=== PATIENT | female | born 1975 | race Caucasian/White ===

== ENCOUNTER 2023-05-11 21:39 | Emergency (ER) | payer MEDICAID, SELFPAY ==
[2023-05-11 21:44] VITALS: BP 127/93; PULSE 82; RESP 16; TEMP 37.2; O2SAT 99; BMI 22.9
--- NOTE | 2023-05-11 22:01 | ED.EYEPROB1 ---
HPI - Eye Problem General Chief complaint: Eye Problems Stated complaint: LT EYE SWELLING Time Seen by Provider: 05/11/23 21:56 Source: patient Mode of arrival: walk-in Limitations: no limitations History of Present Illness HPI Narrative: patient rubbed her eye because it felt uncomfortable. She does wear contacts. States it feels itchy. No headache.Denies injury chief complaint: Reports eye redness Related Data Allergies Allergy/AdvReac Type Severity Reaction Status Date / Time No Known Drug Allergies Allergy Verified 05/11/23 21:47 Review of Systems ROS Status of ROS 10 or more systems reviewed and unremarkable except as noted in history and below PFS PFS Social History Smoking status: Current every day smoker Exam Constitutional Vital Signs, click to edit/add: Last Vital Signs Temp 98.9 F 05/11/23 21:44 Pulse 82 05/11/23 21:44 Resp 05/11/23 21:44 BP 127/93 H 05/11/23 21:44 Pulse Ox 99 05/11/23 21:44 O2 Del Method Room Air 05/11/23 21:44 Common normals: no apparent distress, average body habitus, oriented x3 and healthy appearing Eye Common normals: PERRL, EOMs intact bilaterally and no scleral icterus Other: sl chemosis left eye. eye with mild injection. No palpebral swelling or erythema Respiratory Common normals: normal respiratory effort, no retractions and no use of accessory muscles Cardio Common normals: regular rate, regular rhythm, S1 normal heart sound and S2 normal heart sound Extremity Common normals: normal to inspection and full ROM Neuro Common normals: oriented x3, CN's II-XII intact bilaterally, moves all extremities and no focal motor deficits Psych Appearance: grossly normal Course Vital Signs Vital signs: Vital Signs Temperature 98.9 F 05/11/23 21:44 Pulse Rate 82 05/11/23 21:44 Respiratory Rate 16 05/11/23 21:44 Blood Pressure 127/93 H 05/11/23 21:44 Pulse Oximetry 99 05/11/23 21:44 Oxygen Delivery Method Room Air 05/11/23 21:44 Temperature 98.9 F 05/11/23 21:44 Pulse Rate 82 05/11/23 21:44 Respiratory Rate 16 05/11/23 21:44 Blood Pressure 127/93 H 05/11/23 21:44 Pulse Oximetry 99 05/11/23 21:44 Oxygen Delivery Method Room Air 05/11/23 21:44 MDM - Eye Problem MDM Narrative Medical decision making narrative: patient presents with what appears to be an allergic conjunctivitis. mild injection, itch and chemosis of the right eye. No clear correlation as to the cause. Treated with prednisone and tobradex in the department and the swelling and irritation improved. Discharged home and advised to have her eye rechecked in one day Discharge Plan Discharge Chief Complaint: Eye Problems Clinical Impression: Conjunctivitis Patient Disposition: Home, Self-Care Instructions: Conjunctivitis (ED) Additional Instructions: have eye rechecked within 24 hours. use drops as prescribed Stand Alone Forms: Portal Instructions Referrals: MARBELLA RODNEY [Primary Care Provider] - 1 week
[2023-05-11] MEDS: TOBRAMYCIN/DEXAMETHASONE 0.3%/0.1% OP SUSP 50 DROP/2.5 ML BOTTLE 2 ML OP (22:34)
[2023-05-11] MEDS: PREDNISONE 20 MG TABLET 40 MG PO (22:34)
== END 2023-05-11 23:03 | disposition home or self-care (01) ==
PROVIDERS: Emergency Provider Internal Medicine; PCP Student in an Organized Health Care Education/Training Program
DX: H10.9 Unspecified conjunctivitis (principal); F17.210 Nicotine dependence, cigarettes, uncomplicated
CPT/HCPCS: 99283

== ENCOUNTER 2024-10-03 18:22 | Emergency (ER) | payer SELFPAY ==
[2024-10-03 18:27] VITALS: BP 128/77; PULSE 94; TEMP 36.7; O2SAT 98; BMI 19.2
--- NOTE | 2024-10-03 18:40 | ECG_ITS ---
[facility] Test Date: 2024-10-03 Pat Name: TRISH CARLISLE Department: Room: - Gender: Female Director Of Education And Training: : 1975 Requested By: [id number] Order Number: [id number] Reading MD: MELVINA LE Measurements Intervals [place] Rate: 80 P: 44 OK: 116 QRS: 58 QRSD: 86 T: 25 QT: 408 QTc: 444 Interpretive Statements 1100 Sinus rhythm 2210 Short OK interval 8102 Low QRS voltage in chest leads 9150 abnormal ECG No previous ECG available for comparison Electronically Signed On 10-04-2024 14:57:49 EST by MELVINA LE
--- NOTE | 2024-10-03 18:41 | ED_ITS ---
Documented by User: BRIANNE Gomez 10/03/24 20:58 HPI HPI - General Adult General Chief complaint: Extremity Problem, Nontraumatic Stated complaint: ABDOMINAL PAIN/ BILATERAL LEG SWELLING Time Seen by Provider: 10/03/24 18:23 Source: patient Mode of arrival: walk-in Limitations: no limitations History of Present Illness HPI narrative: Patient is a 49-year-old female who presents to the emergency department for evaluation of exertional dyspnea, peripheral edema and abdominal pain. She has family at the bedside accompanying her. She states she has a known umbilical hernia that is painful, she is typically able to reduce it without difficulty. She has had no fevers, cough or congestion. She has no chest pain. She states she feels short of breath when she is up and moving around and has noticed that her legs are swollen. No redness, open wounds or drainage of the legs. She has a history of hepatitis C that she was previously treated for several years ago, she has not seen her GI specialist for several years since that time. She has not had any urinary changes. She vapes daily. She has no concern for . Related Data Home Medications ?Medication ?Instructions ?Recorded ?Confirmed No Known Home Medications 10/03/24 10/03/24 Allergies Allergy/AdvReac Type Severity Reaction Status Date / Time No Known Drug Allergies Allergy Verified 10/03/24 18:30 Opioid HPI Opioid Management Most Recent Opioid Data: No Data to Display Review of Systems ROS Constitutional Denies: fever or chills Ears, nose, mouth, and throat Denies: throat pain or nasal congestion Cardiovascular Reports: swelling of feet/ankles and shortness of breath with exertion; Denies: chest pain Respiratory Reports: shortness of breath Gastrointestinal Reports: abdominal pain; Denies: nausea, vomiting or diarrhea Musculoskeletal Denies: back pain Integumentary/Breast Denies: rash Neurological Denies: numbness in extremities or weakness in extremities Hematologic/Lymphatic Denies: easy bruising or easy bleeding PFSH PFSH Social History Smoking status: Current every day smoker Exam Narrative Exam Narrative: Gen.: Awake, alert, in no distress Head: Normocephalic, atraumatic ENT: Moist mucous membranes Respiratory: No respiratory distress, faint expiratory wheezing in the bilateral bases. Patient speaks in full sentences Cardio: Regular rate and rhythm Gastrointestinal: Abdomen is soft, mildly distended but not rigid. Small umbilical hernia noted that is easily reduced at the bedside Extremities: Moves extremities equally, 3+ pitting edema to the bilateral lower extremities, no erythema or induration of the calves Psych: Normal mood and affect Neuro: No focal neuro deficit Skin: Warm, dry, intact Constitutional Vital Signs, click to edit/add: Last Vital Signs Temp 98.0 F 10/03/24 18:27 Pulse 87 10/03/24 20:38 Resp 18 10/03/24 20:38 BP 128/77 10/03/24 18:27 Pulse Ox 100 10/03/24 20:38 O2 Del Method Room Air 10/03/24 20:38 Course Vital Signs Vital signs: Vital Signs Temperature 98.0 F 10/03/24 18:27 Pulse Rate 94 H 10/03/24 18:27 Respiratory Rate 16 10/03/24 18:27 Blood Pressure 128/77 10/03/24 18:27 Pulse Oximetry 98 10/03/24 18:27 Oxygen Delivery Method Room Air 10/03/24 18:27 Temperature 98.0 F 10/03/24 18:27 Pulse Rate 87 10/03/24 20:38 Respiratory Rate 18 10/03/24 20:38 Blood Pressure 128/77 10/03/24 18:27 Pulse Oximetry 100 10/03/24 20:38 Oxygen Delivery Method Room Air 10/03/24 20:38 Medical Decision Making [facility] Narrative Medical decision making narrative: 2057: Patient ordered to have a breathing treatment while awaiting labs and imaging. Vital signs are stable. Laboratory studies show anemia, elevated BNP and minimally elevated D-dimer. CT angio of the chest, CT abdomen/pelvis are pending at this time. Case is turned over to attending physician for disposition. Medical Records Medical records reviewed: Yes I reviewed the patient's medical records Lab Data Lab results reviewed: Yes I reviewed the patient's lab results Labs: Lab Results 10/03/24 10/03/24 Range/Units 18:38 18:45 WBC 8.0 (4.0-11.0) 10^3/uL RBC 3.60 L (4.20-5.40) 10^6/uL Hgb 8.0 L (12.0-16.0) g/dL Hct 27.3 L (36.0-48.0) % MCV 75.8 L (81.0-99.0) fL MCH 22.2 L (26.7-34.0) pg MCHC 29.3 L (29.9-35.2) g/dL RDW 15.8 H (11.0-15.0) % Plt Count 275 (150-450) 10^3/uL MPV 10.1 (9.5-13.5) fL Neut % (Auto) 68.8 (43.0-75.0) % Lymph % (Auto) 19.1 L (20.5-60.0) % Towns % (Auto) 8.1 (1.7-12.0) % Eos % (Auto) 3.1 (0.9-7.0) % Baso % (Auto) 0.5 (0.2-2.0) % Neut # (Auto) 5.5 (1.4-6.5) 10^3/uL Lymph # (Auto) 1.5 (1.2-3.8) 10^3/uL Towns # (Auto) 0.7 (0.3-0.8) 10^3/uL Eos # (Auto) 0.3 (0.0-0.7) 10^3/uL Baso # (Auto) 0.0 (0.0-0.1) 10^3/uL Abs Immat Gran (auto) 0.03 (0.00-0.03) 10^3/uL Imm/Tot Granulo (auto) 0.4 (0.0-0.5) % PT 9.7 (9.0-11.6) sec INR <0.93 D-Dimer 0.60 H (<=0.59) mg/L FEU Sodium 142 (136-145) mmol/L Potassium 3.9 (3.5-5.1) mmol/L Chloride 105 (98-107) mmol/L Carbon Dioxide 28.0 (21.0-32.0) mmol/L Anion Gap 12.9 BUN 10.0 (7.0-18.0) mg/dL Creatinine 0.76 (0.55-1.02) mg/dL Est GFR ( Amer) >60 (>=60 mL/min/1.73m^2) Est GFR (Non-Af Amer) >60 (>=60 mL/min/1.73m^2) BUN/Creatinine Ratio 13.2 Glucose 116 H (74-106) mg/dL Lactate 1.8 (0.4-2.0) mmol/L Calcium 8.0 L (8.5-10.1) mg/dL Magnesium 1.9 (1.8-2.4) mg/dL Total Bilirubin 0.2 (0.2-1.0) mg/dL AST 28 (15-37) U/L ALT 30 (14-59) U/L Alkaline Phosphatase 113 (46-116) U/L Troponin I High Sens 8.6 (4.0-51.3) pg/mL NT-Pro-B Natriuret Pep 1736.0 H* (<=450.0) pg/mL Total Protein 5.9 L (6.4-8.2) g/dL Albumin 2.9 L (3.4-5.0) g/dL Globulin 3.0 g/dL Albumin/Globulin Ratio 1.0 Lipase 21.0 (16.0-77.0) U/L TSH 4.473 H (0.358-3.740) uIU/mL Urine Color Yellow (YELLOW) Urine Clarity Sl cloudy (CLEAR) Urine pH 6.0 (5.0-9.0) Ur Specific [place] 1.025 (1.005-1.025) Urine Protein Negative (NEG/TRACE) mg/dL Urine Glucose (UA) Negative (NEGATIVE) mg/dL Urine Ketones Trace A (NEGATIVE) mg/dL Urine Occult Blood Negative (NEGATIVE) Urine Nitrite Negative (NEGATIVE) Urine Bilirubin Negative (NEGATIVE) Urine Urobilinogen 0.2 (0.2-1.0) EU/dL Ur Leukocyte Esterase Negative (NEGATIVE) Urine RBC 0-2 (0-2) #/HPF Urine WBC 2-5 A (NONE SEEN) #/HPF Ur Squamous Epith Cells Moderate A (NONE/RARE) #/LPF Urine Crystals None seen (None Seen) #/HPF Urine Bacteria Moderate A (NONE SEEN) #/HPF Urine Casts None seen (NONE SEEN) #/LPF Urine Mucus Small A (NONE SEEN) Ur Culture Indicated? Yes ECG Data Attestation: I personally reviewed and interpreted this ECG as follows: (Normal sinus rhythm at a rate of [address] elevation or ectopy. EKG reviewed by attending physician) Discharge Plan Discharge Stand Alone Forms: Portal Instructions Chief Complaint: Extremity Problem, Nontraumatic Clinical Impression: Congestive heart failure, Abdominal pain Patient Disposition: Left Against Medical Advice Time of Disposition Decision: 21:47 Condition: Undetermined Mode of Transportation: Private Vehicle Prescriptions / Home Meds: No Action No Known Home Medications Print Language: Cymraes Instructions: Heart Failure (ED) Additional Instructions: Call your family doctor for follow-up on Saturday morning Referrals: MARBELLA RODNEY [Primary Care Provider] - 1 week Documented by User: Gary Olmedo MD 10/03/24 21:49 HPI HPI - General Adult General Chief complaint: Extremity Problem, Nontraumatic Stated complaint: ABDOMINAL PAIN/ BILATERAL LEG SWELLING Time Seen by Provider: 10/03/24 18:23 Related Data Home Medications ?Medication ?Instructions ?Recorded ?Confirmed No Known Home Medications 10/03/24 10/03/24 Allergies Allergy/AdvReac Type Severity Reaction Status Date / Time No Known Drug Allergies Allergy Verified 10/03/24 18:30 Opioid HPI Opioid Management Most Recent Opioid Data: 2 No Data to Display PFSH PFSH Social History Smoking status: Current every day smoker Exam Constitutional Vital Signs, click to edit/add: Last Vital Signs Temp 98.0 F 10/03/24 18:27 Pulse 87 10/03/24 20:38 Resp 18 10/03/24 20:38 BP 128/77 10/03/24 18:27 Pulse Ox 100 10/03/24 20:38 O2 Del Method Room Air 10/03/24 20:38 Course Vital Signs Vital signs: Vital Signs Temperature 98.0 F 10/03/24 18:27 Pulse Rate 94 H 10/03/24 18:27 Respiratory Rate 16 10/03/24 18:27 Blood Pressure 128/77 10/03/24 18:27 Pulse Oximetry 98 10/03/24 18:27 Oxygen Delivery Method Room Air 10/03/24 18:27 Temperature 98.0 F 10/03/24 18:27 Pulse Rate 87 10/03/24 20:38 Respiratory Rate 18 10/03/24 20:38 Blood Pressure 128/77 10/03/24 18:27 Pulse Oximetry 100 10/03/24 20:38 Oxygen Delivery Method Room Air 10/03/24 20:38 Medical Decision Making [facility] Narrative Medical decision making narrative: 2057: Patient ordered to have a breathing treatment while awaiting labs and imaging. Vital signs are stable. Laboratory studies show anemia, elevated BNP and minimally elevated D-dimer. CT angio of the chest, CT abdomen/pelvis are pending at this time. Case is turned over to attending physician for disposition. JK 9:48pm the patient refused to stay for the CAT scan results and is signing out AGAINST MEDICAL ADVICE. She is fully able to make medical decisions for herself. She was encouraged to follow-up with her family doctor Differential Diagnosis Differential Diagnosis: Heart failure, pulmonary edema, anasarca, liver disease Lab Data Labs: Lab Results 10/03/24 10/03/24 Range/Units 18:38 18:45 WBC 8.0 (4.0-11.0) 10^3/uL RBC 3.60 L (4.20-5.40) 10^6/uL Hgb 8.0 L (12.0-16.0) g/dL Hct 27.3 L (36.0-48.0) % MCV 75.8 L (81.0-99.0) fL MCH 22.2 L (26.7-34.0) pg MCHC 29.3 L (29.9-35.2) g/dL RDW 15.8 H (11.0-15.0) % Plt Count 275 (150-450) 10^3/uL MPV 10.1 (9.5-13.5) fL Neut % (Auto) 68.8 (43.0-75.0) % Lymph % (Auto) 19.1 L (20.5-60.0) % Towns % (Auto) 8.1 (1.7-12.0) % Eos % (Auto) 3.1 (0.9-7.0) % Baso % (Auto) 0.5 (0.2-2.0) % Neut # (Auto) 5.5 (1.4-6.5) 10^3/uL Lymph # (Auto) 1.5 (1.2-3.8) 10^3/uL Towns # (Auto) 0.7 (0.3-0.8) 10^3/uL Eos # (Auto) 0.3 (0.0-0.7) 10^3/uL Baso # (Auto) 0.0 (0.0-0.1) 10^3/uL Abs Immat Gran (auto) 0.03 (0.00-0.03) 10^3/uL Imm/Tot Granulo (auto) 0.4 (0.0-0.5) % PT 9.7 (9.0-11.6) sec INR <0.93 D-Dimer 0.60 H (<=0.59) mg/L FEU Sodium 142 (136-145) mmol/L Potassium 3.9 (3.5-5.1) mmol/L Chloride 105 (98-107) mmol/L Carbon Dioxide 28.0 (21.0-32.0) mmol/L Anion Gap 12.9 BUN 10.0 (7.0-18.0) mg/dL Creatinine 0.76 (0.55-1.02) mg/dL Est GFR ( Amer) >60 (>=60 mL/min/1.73m^2) Est GFR (Non-Af Amer) >60 (>=60 mL/min/1.73m^2) BUN/Creatinine Ratio 13.2 Glucose 116 H (74-106) mg/dL Lactate 1.8 (0.4-2.0) mmol/L Calcium 8.0 L (8.5-10.1) mg/dL Magnesium 1.9 (1.8-2.4) mg/dL Total Bilirubin 0.2 (0.2-1.0) mg/dL AST 28 (15-37) U/L ALT 30 (14-59) U/L Alkaline Phosphatase 113 (46-116) U/L Troponin I High Sens 8.6 (4.0-51.3) pg/mL NT-Pro-B Natriuret Pep 1736.0 H* (<=450.0) pg/mL Total Protein 5.9 L (6.4-8.2) g/dL Albumin 2.9 L (3.4-5.0) g/dL Globulin 3.0 g/dL Albumin/Globulin Ratio 1.0 Lipase 21.0 (16.0-77.0) U/L TSH 4.473 H (0.358-3.740) uIU/mL Urine Color Yellow (YELLOW) Urine Clarity Sl cloudy (CLEAR) Urine pH 6.0 (5.0-9.0) Ur Specific [place] 1.025 (1.005-1.025) Urine Protein Negative (NEG/TRACE) mg/dL Urine Glucose (UA) Negative (NEGATIVE) mg/dL Urine Ketones Trace A (NEGATIVE) mg/dL Urine Occult Blood Negative (NEGATIVE) Urine Nitrite Negative (NEGATIVE) Urine Bilirubin Negative (NEGATIVE) Urine Urobilinogen 0.2 (0.2-1.0) EU/dL Ur Leukocyte Esterase Negative (NEGATIVE) Urine RBC 0-2 (0-2) #/HPF Urine WBC 2-5 A (NONE SEEN) #/HPF Ur Squamous Epith Cells Moderate A (NONE/RARE) #/LPF Urine Crystals None seen (None Seen) #/HPF Urine Bacteria Moderate A (NONE SEEN) #/HPF Urine Casts None seen (NONE SEEN) #/LPF Urine Mucus Small A (NONE SEEN) Ur Culture Indicated? Yes Discharge Plan Discharge Stand Alone Forms: Portal Instructions Chief Complaint: Extremity Problem, Nontraumatic Clinical Impression: Congestive heart failure, Abdominal pain Patient Disposition: Left Against Medical Advice Time of Disposition Decision: 21:47 Condition: Undetermined Mode of Transportation: Private Vehicle Prescriptions / Home Meds: No Action No Known Home Medications Print Language: Cymraes Instructions: Heart Failure (ED) Additional Instructions: Call your family doctor for follow-up on Saturday morning Referrals: MARBELLA RODNEY [Primary Care Provider] - 1 week
[2024-10-03 19:05] LABS: Basophils Percent Auto 0.5 % (0.2-2.0); Eosinophils Absolute Auto 0.3 10^3/uL (0.0-0.7); Eosinophils Percent Auto 3.1 % (0.9-7.0); Hematocrit 27.3 % (36.0-48.0); Immature Granulocytes Abs Auto 0.03 10^3/uL (0.00-0.03); Immature Granulocytes Pct Auto 0.4 % (0.0-0.5); Lymphocytes Absolute Auto 1.5 10^3/uL (1.2-3.8); Lymphocytes Percent Auto 19.1 % (20.5-60.0); Mean Corpuscular HGB Conc 29.3 g/dL (29.9-35.2); Mean Corpuscular Hemoglobin 22.2 pg (26.7-34.0); Mean Corpuscular Volume 75.8 fL (81.0-99.0); Mean Platelet Volume 10.1 fL (9.5-13.5); Monocytes Absolute Auto 0.7 10^3/uL (0.3-0.8); Monocytes Percent Auto 8.1 % (1.7-12.0); Neutrophils Absolute Auto 5.5 10^3/uL (1.4-6.5); Neutrophils Percent Auto 68.8 % (43.0-75.0); Platelet Count 275 10^3/uL (150-450); Red Cell Distribution Width 15.8 % (11.0-15.0)
[2024-10-03 19:09] LABS: Bilirubin Urine NEGATIVE (NEGATIVE); Blood Urine NEGATIVE (NEGATIVE); Clarity Urine SL CLOUDY (CLEAR); Color Urine YELLOW (YELLOW); Glucose Urine UA NEGATIVE (NEGATIVE); Ketones Urine TRACE mg/dL (NEGATIVE); Leukocyte Esterase Urine NEGATIVE (NEGATIVE); Nitrite Urine NEGATIVE (NEGATIVE); Protein Urine NEGATIVE (NEG/TRACE); Specific Gravity Urine 1.025 (1.005-1.025); Urobilinogen Urine 0.2 EU/dL (0.2-1.0)
[2024-10-03 19:11] LABS: Bacteria Urine MODERATE #/HPF (NONE SEEN); Cast Seen? NONE SEEN #/LPF (NONE SEEN); Crystals Seen? None Seen #/HPF (None Seen); Mucus Urine SMALL (NONE SEEN); RBC Urine 0-2 #/HPF (0-2); Squamous Epithelial Cell Urine MODERATE #/LPF (NONE/RARE); Urine Culture Indicated YES
[2024-10-03 19:22] LABS: Prothrombin Time 9.7 sec (9.0-11.6)
[2024-10-03 19:25] LABS: INR <0.93
--- NOTE | 2024-10-03 19:27 | CT_ITS ---
The [facility] [address] [place], [place] [address] Patient Name: TRISH CARLISLE MRN: [id number] date: 1975 Sex: F Assigned Patient Location: ED.MAIN Current Patient Location: ED.MAIN Accession/Order Number: [id number] Exam Date: 10/03/2024 19:49 Report Date: 10/03/2024 21:43 At the request of: SHUBHAM MAHER Procedure: CT abdomen pelvis w con CT ABDOMEN/PELVIS WITH IV CONTRAST. INDICATION: Abdominal pain, swelling. COMPARISON: There are no other studies available for comparison. TECHNIQUE: Contiguous axial images were obtained from the lung bases to the pelvic floor following the intravenous administration of contrast. Coronal and sagittal reformations are provided. FINDINGS: LOWER LUNGS: Trace right pleural effusion. There is mild interlobular septal thickening in the lower lungs. LIVER/BILIARY TREE: No mass. No intrahepatic ductal dilatation. There is mild periportal edema. GALLBLADDER: No significant gallbladder wall thickening. No radiopaque stone. CBD: Normal CBD. SPLEEN: Normal in size. PANCREAS: No acute findings. No peripancreatic fluid or inflammation. No pancreatic duct dilatation. No discrete mass. ADRENALS: Normal. KIDNEYS: No hydronephrosis. No radiopaque calculus. STOMACH AND BOWEL: Stomach is unremarkable. No dilated bowel loops. There are mildly thickened small bowel loops. APPENDIX: Normal appendix. PERITONEAL CAVITY: No fluid. No fat stranding. ABDOMINAL WALL: There is diffuse subcutaneous edema of the abdominal wall and pelvis. There is a small umbilical hernia containing fat. LYMPH NODES: There are mildly enlarged bilateral inguinal lymph nodes, which is nonspecific. ABDOMINAL AORTA: No aneurysm. PELVIS: No acute abnormality. MUSCULOSKELETAL: No acute osseous abnormality. CT/CT abdomen pelvis w con IMPRESSION: 1. Mildly thickened small bowel loops, which is nonspecific. Correlate for enteritis. 2. Anasarca. 3. Mild periportal edema, which is nonspecific and can be seen with fluid overload or acute hepatitis. 4. Findings are suggestive of mild bilateral pulmonary interstitial edema. Trace right pleural effusion. Electronically authenticated by: JOEL GOODMAN Date: 10/03/2024 21:43
--- NOTE | 2024-10-03 19:27 | CT_ITS ---
The [address] [address] Patient Name: TRISH CARLISLE MRN: [id number] date: 1975 Sex: F Assigned Patient Location: ED.MAIN Current Patient Location: ED.MAIN Accession/Order Number: [id number] Exam Date: 10/03/2024 19:49 Report Date: 10/03/2024 21:49 At the request of: SHUBHAM MAHER Procedure: CT angio chest EXAMINATION:CT angio chest INDICATION:PE COMPARISON:None TECHNIQUE:Thin section transaxial slices were acquired through the chest with intravenous contrast per PE protocol. 3-D, Coronal and sagittal reconstructed images were reviewed. FINDINGS: PULMONARY ARTERIES: There is excellent opacification of the pulmonary vasculature. No suspicious pulmonary arterial filling defects are identified to suggest pulmonary embolus. LUNGS: Smooth interlobular septal thickening is present throughout the lungs consistent with pulmonary edema. No suspicious airspace disease is present to suggest an infectious process. There are no pulmonary masses present. PLEURAL CAVITY: There is a small right pleural effusion. MEDIASTINUM: Trachea and central airways are patent. HEART: The heart is unremarkable.There is no evidence of right heart strain. VASCULAR:There is no aneurysm or dissection of the thoracic aorta. LYMPH NODES:No suspicious lymphadenopathy. CHEST WALL/AXILLA: Chest wall and axilla are unremarkable. BONES: Osseous structures are unremarkable. VISUALIZED UPPER ABDOMEN: Upper abdominal structures are unremarkable. CT/CT angio chest IMPRESSION: 1. No evidence of pulmonary embolus. 2. Pulmonary edema with small right pleural effusion. Electronically authenticated by: XIAO ORTEGA Date: 10/03/2024 21:49
[2024-10-03 19:28] LABS: Lactate/Lactic Acid 1.8 mmol/L (0.4-2.0)
[2024-10-03 19:35] LABS: Alanine Aminotransferase 30 U/L (14-59); Albumin Level 2.9 g/dL (3.4-5.0); Alkaline Phosphatase 113 U/L (46-116); Anion Gap 12.9; Aspartate Amino Transferase 28 U/L (15-37); BUN Creatinine Ratio 13.2; Bilirubin Total 0.2 mg/dL (0.2-1.0); Chloride 105 mmol/L (98-107); Estimated GFR (African America >60 (>=60 mL/min/1.73m^2); Estimated GFR (Non-African Ame >60 (>=60 mL/min/1.73m^2); Glucose 116 mg/dL (74-106); Magnesium 1.9 mg/dL (1.8-2.4); Potassium 3.9 mmol/L (3.5-5.1); Sodium 142 mmol/L (136-145); Thyroid Stimulating Hormone 4.473 uIU/mL (0.358-3.740); Total Protein 5.9 g/dL (6.4-8.2); Troponin I High Sensitivity 8.6 pg/mL (4.0-51.3)
[2024-10-03 20:38] VITALS: PULSE 87; O2SAT 100
[2024-10-03] MEDS: ALBUTEROL SULFATE 2.5 MG/3 ML VIAL NEB IH (20:38)
== END 2024-10-03 21:54 | disposition left against medical advice (07) ==
PROVIDERS: Physician Assistant; Emergency Provider Emergency Medicine; PCP Student in an Organized Health Care Education/Training Program
DX: R10.9 Unspecified abdominal pain (principal); Z53.29 Procedure and treatment not carried out because of patient's decision for other reasons; I50.9 Heart failure, unspecified; R06.09 Other forms of dyspnea; K42.9 Umbilical hernia without obstruction or gangrene; B19.20 Unspecified viral hepatitis C without hepatic coma; F17.290 Nicotine dependence, other tobacco product, uncomplicated; R79.89 Other specified abnormal findings of blood chemistry; M79.89 Other specified soft tissue disorders
CPT/HCPCS: 36415; 71275; 74177; 80053; 81001; 83605; 83690; 83735; 83880; 84443; 84484; 85025; 85378; 85610; 87086; 93005; 94640; 99285; Q9967